=== PATIENT | female | born 1970 | race Caucasian/White ===

== ENCOUNTER 2017-02-25 23:03 | Emergency (ER) | payer MEDICAID, OTHER ==
[2017-02-25 23:47] VITALS: BMI 34.0
[2017-02-26 00:33] VITALS: RESP 16; TEMP 98.4
[2017-02-26] MEDS ORDERED: Pantoprazole 40 mg EC Tab PO STA (01:26)
--- NOTE | 2017-02-26 01:41 | ED PDOC ---
Arrival/HPI - General Chief Complaint: Dental Pain Time Seen by Provider: 02/26/17 00:30 Historian: Patient, Family - History of Present Illness Narrative History of Present Illness (Text): 02/26/17 01:45 46yr old female presents today with right lower dental pain x 2 days. pt was seen by dentist today and given RX for percocet and amoxicillin. pt states pain is still severe despite taking motrin, aleve, and other medications from [place] for pain. family states the patient will f/u with another dentist tomorrow. pt c/o severe throbbing pain to the right lower molar. denies trismus or drooling. no fever/chills. no other complaints. Time/Duration: Other (2 days) Symptom Course: Worsening Quality: Throbbing Past Medical History - Provider Review Nursing Documentation Reviewed: Yes - Travel History Have you recently traveled outside [place] w/in the past 3 mons?: No - Infectious Disease Hx of Infectious Diseases: None - Tetanus Immunization Tetanus Immunization: Unknown - Psychiatric Hx Substance Use: No - Anesthesia Hx Anesthesia: No Hx Anesthesia Reactions: No Family/Social History - Physician Review Nursing Documentation Reviewed: Yes Family/Social History: Unknown Family HX Smoking Status: Never Smoked Hx Alcohol Use: No Hx Substance Use: No Allergies/Home Meds Allergies/Adverse Reactions: Allergies No Known Allergies Allergy (Verified 11/17/15 19:28) Home Medications: Home Meds Medication Instructions Recorded Confirmed Amoxicillin/Clavulanate [Augmentin 1 tab PO BID 02/25/17 02/25/17 875 MG-125 MG Tab] Ibuprofen [Motrin Tab] 1 tab PO TID 02/25/17 02/25/17 Oxycodone HCl/Acetaminophen 1 tab PO Q4H PRN 02/25/17 02/25/17 [Oxycodone-Acetaminophen 5-325] Review of Systems - Review of Systems Constitutional: absent: Fatigue, Fevers ENT: Other (DENTAL PAIN) Respiratory: absent: SOB, Cough Cardiovascular: absent: Chest Pain, Palpitations Gastrointestinal: absent: Abdominal Pain, Nausea, Vomiting Genitourinary Female: absent: Dysuria Musculoskeletal: absent: Arthralgias Skin: absent: Rash, Pruritis Neurological: absent: Headache, Dizziness Psychiatric: absent: Anxiety, Depression Physical Exam Vital Signs Reviewed: Yes Vital Signs Temp Pulse Resp BP Pulse Ox 02/26/17 00:00 98.4 F 86 16 183/90 H 100 Temperature: Afebrile Blood Pressure: Hypertensive Pulse: Regular Respiratory Rate: Normal Appearance: Positive for: Well-Appearing, Non-Toxic, Uncomfortable Pain Distress: None Mental Status: Positive for: Alert and Oriented X 3 - Systems Exam Head: Present: Atraumatic Ears: Present: Normal, NORMAL TM Mouth: Present: Moist Mucous Membranes, Normal Teeth (+ right lower molar tenderness; no edema, no erythema; no abscess). No: Drooling, Trismus Pharnyx: Present: Normal. No: ERYTHEMA, EXUDATE Nose (External): Present: Atraumatic Nose (Internal): Present: Normal Inspection Neck: Present: Normal Range of Motion, Trachea Midline. No: Lymphadenopathy Respiratory/Chest: Present: Clear to Auscultation Cardiovascular: Present: Regular Rate and Rhythm Skin: Present: Warm, Dry Psychiatric: Present: Alert Medical Decision Making ED Course and Treatment: 02/26/17 01:49 Patient is nontoxic well-appearing. Hypertensive. Uncomfortable in pain. Patient has taken Motrin, Advil, Percocet 2 and antibiotics for her tooth infection, plus medications from her country for pain. At this point I do not want to give the patient any stronger medications for her pain as while in the emergency room she took her prescribed Percocet as well as 3 Advil. I will add Protonix due to the NSAID use. No trismus or drooling, moist mucous membranes I discussed in depth with the family my concerns for the patient taking multiple different medications. I advised taking only the ibuprofen 800 mg, the antibiotic and Percocet for pain. I advised follow-up with the dentist within the next 2 days. I advised immediate return is symptoms worsen persist or if new concerning symptoms develop Family states they're going to bring the patient to the dentist tomorrow. Patient/family verbalizes understanding of discharge instructions and need for immediate followup. Impression: Toothache continue medications as prescribed Take your Motrin 800 mg 1 tablet every 8 hours as needed for pain Take your Percocet one tablet every 6 hours as needed for moderate to severe pain: May cause drowsiness Take your antibiotic twice daily 10 days Follow-up with the dentist within the next 2 days Follow-up with the primary care physician within the next 2 days Return if symptoms worsen persist or if new concerning symptoms develop Disposition/Present on Arrival - Present on Arrival Any Indicators Present on Arrival: No History of DVT/PE: No History of Uncontrolled Diabetes: No Urinary Catheter: No History of Decub. Ulcer: No History Surgical Site Infection Following: None - Disposition Have Diagnosis and Disposition been Completed?: Yes Diagnosis: Toothache Disposition: HOME/ ROUTINE Disposition Time: 01:26 Patient Plan: Discharge Patient Problems: Current Active Problems Problem Status Onset Toothache Acute Condition: GOOD Discharge Instructions (ExitCare): Toothache (ED) Additional Instructions: continue medications as prescribed Take your Motrin 800 mg 1 tablet every 8 hours as needed for pain Take your Percocet one tablet every 6 hours as needed for moderate to severe pain: May cause drowsiness Take your antibiotic twice daily 10 days Follow-up with the dentist within the next 2 days Follow-up with the primary care physician within the next 2 days Return if symptoms worsen persist or if new concerning symptoms develop Referrals: Prosper Horvath MD [Primary Care Provider] - Follow up with primary Forms: [facility] ([place]ar[place]anda), WORK NOTE
[2017-02-26 05:15] VITALS: BP 156/82; PULSE 82; O2SAT 99
== END 2017-02-26 02:00 | disposition home or self-care (01) ==
LOC: ED 23:03
DX: K08.89 Other specified disorders of teeth and supporting structures (principal)